=== PATIENT | female | born 2000 | race American Indian/Alaskan Native ===

== ENCOUNTER 2019-04-20 01:40 | Emergency (ER) | payer SELFPAY ==
[2019-04-20 01:59] VITALS: BP 142/75
--- NOTE | 2019-04-20 02:35 | Emergency Department Report ---
ED Anxiety HPI - General Chief Complaint: Anxiety Stated Complaint: ANXIETY Time Seen by Provider: 04/20/19 01:50 Source: patient, EMS Mode of arrival: Stretcher Limitations: No Limitations - History of Present Illness Initial Comments: 18-year-old female presents to ED for anxiety attack. Patient reports history of anxiety. States anxiety attack was triggered by an argument with her family members. Patient not currently on medications for her anxiety. MD Complaint: anxiety -: This morning Symptoms: dyspnea, chest pain, palpitations Place: home Previous History of Same: Yes Severity: moderate Quality: improving Provoking factors: emotional stress Improves With: nothing Worsens With: nothing - Related Data Allergies/Adverse Reactions: Allergies Allergy/AdvReac Type Severity Reaction Status Date / Time No Known Allergies Allergy Unverified 04/20/19 02:00 ED Review of Systems ROS: Stated complaint: ANXIETY Other details as noted in HPI Comment: All other systems reviewed and negative Respiratory: shortness of breath Cardiovascular: chest pain, palpitations ED Past Medical Hx - Past Medical History Previous Medical History?: No - Surgical History Past Surgical History?: No - Social History Smoking Status: Never Smoker Substance Use Type: Alcohol ED Physical Exam - General Limitations: No Limitations General appearance: alert, in no apparent distress - Head Head exam: Present: atraumatic, normocephalic - Eye Eye exam: Present: normal appearance, EOMI - ENT ENT exam: Present: mucous membranes moist - Neck Neck exam: Present: normal inspection - Respiratory Respiratory exam: Present: normal lung sounds bilaterally, other (pt is hyperventilating). Absent: respiratory distress - Cardiovascular Cardiovascular Exam: Present: regular rate, normal rhythm - GI/Abdominal GI/Abdominal exam: Present: soft. Absent: distended, tenderness - Extremities Exam Extremities exam: Present: normal inspection - Psychiatric Psychiatric exam: Present: anxious, other (crying). Absent: homicidal ideation, suicidal ideation - Skin Skin exam: Present: warm, dry, intact, normal color ED Course Vital Signs 04/20/19 04/20/19 01:57 01:59 Pulse Rate 74 74 Respiratory 20 20 Rate Blood Pressure 142/75 Blood Pressure 142/75 [Left] O2 Sat by Pulse 97 97 Oximetry - Reevaluation(s) Reevaluation #1: 04/20/19 03:06 Pt currently calm, no longer crying, feeling much better. She declines mental health consult at this time. Critical care attestation.: If time is entered above; I have spent that time in minutes in the direct care of this critically ill patient, excluding procedure time. ED Disposition Clinical Impression: Anxiety attack Disposition: DC-01 TO HOME OR SELFCARE Is pt being admited?: No Condition: Stable Instructions: Anxiety (ED) Referrals: [facility] [Outside] - 3-5 Days [facility] [Provider Group] - 3-5 Days [facility], [Primary Care Provider] - 3-5 Days Time of Disposition: 03:07
== END 2019-04-20 03:18 | disposition home or self-care (01) ==
LOC: ED 01:40
DX: F41.9 Anxiety disorder, unspecified (principal)